=== PATIENT | female | born 1985 | race Two or more races ===

== ENCOUNTER 2020-11-30 11:11 | Inpatient (IN) | payer MEDICAID, OTHER ==
[~2020-11-30] VITALS: Ht 167.6 cm; Wt 84.8 kg
[2020-11-30] MEDS ORDERED: SODIUM CHLORIDE 0.9% 500 ML IVB ONE (11:15)
[2020-11-30 12:14] LABS: Hematocrit 28.2 % (36.0-46.0); Hemoglobin 8.8 g/dL (12.2-16.2); Mean Corpuscular Hemoglobin 32.5 pg (28.0-32.0); Mean Corpuscular Hgb Conc. 31.1 g/dL (32.0-36.0); Mean Corpuscular Volume 104.5 fL (80.0-100.0); Platelet Count (auto) 167 10^3/uL (140-450); White Blood Cell 20.9 10^3/uL (4.4-10.8)
[2020-11-30 12:16] LABS: Red Cell Distribution Width 27.1 % (11.8-14.3)
[2020-11-30 12:17] LABS: Basophils % (manual) 0 (0.0-2.0); Blast Cells 0; Eosinophils % (manual) 0 (0-7); Metamyelocytes % 0; Myelocytes % 0; Promyelocytes % 0; Reactive Lymphocytes 0
[2020-11-30 12:27] LABS: Lactic Acid w/Reflex 5.2 mmol/L (0.4-2.0)
[2020-11-30 12:36] LABS: INR 2.39 (0.9-1.15)
[2020-11-30 12:40] LABS: Albumin 1.4 g/dL (3.4-5.0); Anion Gap 20 (5-15); Blood Urea Nitrogen 49 mg/dL (7-18); Calcium 6.9 mg/dL (8.5-10.1); Chloride 102 mmol/L (98-107); Glucose 51 mg/dL (74-106); Sodium 131 mmol/L (136-145)
[2020-11-30 12:45] LABS: Partial Thromboplastin Time 74.2 sec (23.0-31.2)
[2020-11-30 12:51] LABS: Alanine Aminotransferase 64 U/L (13-56); Alkaline Phosphatase 379 U/L (45-117); Aspartate Aminotransferase 244 U/L (15-37); BUN/Creatinine Ratio 7.4; Bilirubin, Total 8.5 mg/dL (0.2-1.0); GFR African American 9 mL/min; GFR Non-African American 8 mL/min; Total Protein 6.3 g/dL (6.4-8.2)
[2020-11-30 12:56] LABS: Potassium 5.8 mmol/L (3.5-5.1)
[2020-11-30 12:57] LABS: Carbon Dioxide 9 mmol/L (21-32)
[2020-11-30] MEDS ORDERED: NOREPINEPHRINE 8 MG/250ML KIT 250 ML IV ONE (13:02)
[2020-11-30 13:15] LABS: Band Neutrophils % (manual) 7; Lymphocytes % (manual) 2 (10.0-50.0); Monocytes % (manual) 9 (0-12)
[2020-11-30] MEDS ORDERED: InsuLIN REG 1unit/0.01ml Soln (100units/ml) IV ONE (13:15)
[2020-11-30] MEDS ORDERED: LACTULOSE 20Gm/30ML SOLN PO ONE (13:15)
[2020-11-30] MEDS ORDERED: SODIUM BICARBONATE 8.4% INJ 50ML SYRINGE IV ONE (13:15)
[2020-11-30] MEDS ORDERED: ALBUTEROL SULF 2.5 MG/0.5ML(0.5%) NEB SOLN NEB ONE (13:15)
[2020-11-30] MEDS ORDERED: NOREPINEPHRINE 8 MG/250ML KIT 250 ML IV SCH (13:15)
[2020-11-30] MEDS ORDERED: DEXTROSE (50%) 50ML SYRG IV ONE (13:15)
[2020-11-30] MEDS ORDERED: FUROSEMIDE 20 MG/2 ML VIAL IV ONE (13:15)
[2020-11-30] MEDS ORDERED: SODIUM ZIRCONIUM CYCL 10 GM PAK PO ONE (13:15)
[2020-11-30] MEDS ORDERED: PIPERACILLIN-TAZOB 3.375GM 100 ML IV ONE (13:15)
[2020-11-30] MEDS ORDERED: CALCIUM GLUC 4.65meq/50ml D5AE 50 ML IV ONE (13:15)
[2020-11-30 16:45] LABS: Urine Amorphous Crystal FEW /hpf (None Seen); Urine Bacteria FEW /hpf (None Seen); Urine Blood TRACE /uL (Negative); Urine Hyaline Cast MANY /lpf (0 - 2); Urine Mucus FEW (None Seen); Urine WBC 23 /hpf (0 - 5); Urine WBC Clumps PRESENT /hpf (None Seen)
[2020-11-30 17:02] LABS: Alcohol, Urine < 3.0 mg/dL (0-10); Amphetamine Screen, Urine NEGATIVE (NEGATIVE); Barbiturate Scree,Urine NEGATIVE (NEGATIVE); Benzodiazephine Screen, Urine NEGATIVE (NEGATIVE); Cannabinoid Screen, Urine NEGATIVE (NEGATIVE); Cocaine Screen, Urine NEGATIVE (NEGATIVE); Opiate Scree,Urine POSITIVE (NEGATIVE); Phencyclidine Screen, Urine NEGATIVE (NEGATIVE)
[2020-11-30] MEDS ORDERED: ACETAMINOPHEN 325 MG TAB PO PRN (17:30)
[2020-11-30] MEDS ORDERED: NITROGLYCERIN 0.4 MG SL TAB SL PRN (17:30)
[2020-11-30] MEDS ORDERED: PHYTONADIONE (VIT K)10 MG/ML 1ML VIAL SUBCUT ONE (17:30)
[2020-11-30] MEDS ORDERED: MORPHINE SULF INJ 2 MG/ML SYRINGE 1ML IV PRN (17:30)
[2020-11-30] MEDS: NOREPINEPHRINE 8 MG/250ML KIT 250 ML IV SCH (17:30)
[2020-11-30] MEDS ORDERED: SODIUM CHLORIDE 0.9% 1,000 ML IV ONE (17:30)
[2020-11-30] MEDS: LACTULOSE 20Gm/30ML SOLN PO SCH ×2 (18:04→21:35)
[2020-11-30] MEDS: SODIUM CHLORIDE 0.9% 1,000 ML IV SCH ×2 (18:04→21:36)
[2020-11-30 20:01] LABS: Hemoglobin 8.9 g/dL (12.2-16.2); White Blood Cell 23.7 10^3/uL (4.4-10.8)
[2020-11-30 20:03] LABS: Hematocrit 27.9 % (36.0-46.0); Mean Corpuscular Hemoglobin 32.8 pg (28.0-32.0); Mean Corpuscular Hgb Conc. 31.8 g/dL (32.0-36.0); Mean Corpuscular Volume 102.9 fL (80.0-100.0); Platelet Count (auto) 197 10^3/uL (140-450); Red Blood Cells 2.72 10^6/uL (4.0-5.20)
[2020-11-30 20:11] LABS: Red Cell Distribution Width 26.7 % (11.8-14.3)
[2020-11-30 20:12] LABS: Basophils % (manual) 0 (0.0-2.0); Blast Cells 0; Metamyelocytes % 0; Myelocytes % 0; Promyelocytes % 0; Reactive Lymphocytes 0
[2020-11-30 20:21] LABS: Albumin 1.4 g/dL (3.4-5.0); Calcium 6.9 mg/dL (8.5-10.1); Potassium 5.1 mmol/L (3.5-5.1)
[2020-11-30 20:25] LABS: BUN/Creatinine Ratio 7.5; Bilirubin, Total 8.6 mg/dL (0.2-1.0); Total Protein 6.1 g/dL (6.4-8.2)
[2020-11-30 20:52] LABS: Lactic Acid w/Reflex 6.2 mmol/L (0.4-2.0)
[2020-11-30 21:33] LABS: Band Neutrophils % (manual) 20; Eosinophils % (manual) 1 (0-7); Lymphocytes % (manual) 4 (10.0-50.0); Monocytes % (manual) 5 (0-12)
[2020-11-30] MEDS: rifAXIMin 550 MG TAB PO SCH (21:36)
[2020-11-30] MEDS ORDERED: VANCOMYCIN PER PHARMACY 0 MG IV SCH (22:45)
[2020-11-30] MEDS ORDERED: VANCOMYCIN 1GM/250ML 250 ML IV ONE (22:45)
[2020-12-01] VITALS (37 sets, daily range): BP systolic 17–130; BP diastolic 36–63
[2020-12-01] MEDS: VASOPRESSIN 50 UNITS in D5W 5% 247.5 ML IV SCH (00:15)
[2020-12-01] MEDS: LACTULOSE 20Gm/30ML SOLN PO SCH ×6 (02:00→22:00)
[2020-12-01 05:45] LABS: Basophils # (auto) 0.1 10 ^3/uL (0-0.2); Basophils % (auto) 0.3 % (0.0-2.0); Eosinophils # (auto) 0.2 10 ^3/uL (0-0.8); Eosinophils % (auto) 0.8 % (0.0-7.0); Hematocrit 26.3 % (36.0-46.0); Nucleated Red Blood Cells % 0.2 %
[2020-12-01 05:48] LABS: Hemoglobin 8.5 g/dL (12.2-16.2); Lymphocytes % (auto) 16.9 % (10.0-50.0); Mean Corpuscular Hemoglobin 33.3 pg (28.0-32.0); Mean Corpuscular Hgb Conc. 32.2 g/dL (32.0-36.0); Mean Corpuscular Volume 103.6 fL (80.0-100.0); Monocytes # (auto) 1.7 10 ^3/uL (0-1.3); Monocytes % (auto) 7.2 % (0.0-12.0); Neutrophils # (auto) 17.7 10 ^3/uL (1.6-8.6); Neutrophils % (auto) 74.8 % (37.0-80.0); Platelet Count (auto) 177 10^3/uL (140-450); Red Blood Cells 2.54 10^6/uL (4.0-5.20); White Blood Cell 23.6 10^3/uL (4.4-10.8)
[2020-12-01 05:50] LABS: Red Cell Distribution Width 26.8 % (11.8-14.3)
[2020-12-01 05:56] LABS: Albumin 1.3 g/dL (3.4-5.0); Calcium 6.7 mg/dL (8.5-10.1); Magnesium 2.8 mg/dL (1.6-2.6); Potassium 5.2 mmol/L (3.5-5.1)
[2020-12-01 05:59] LABS: Lactic Acid w/Reflex 5.1 mmol/L (0.4-2.0)
[2020-12-01 06:00] LABS: BUN/Creatinine Ratio 7.4; Bilirubin, Total 8.3 mg/dL (0.2-1.0); Total Protein 5.9 g/dL (6.4-8.2)
[2020-12-01] MEDS: PIPERACILLIN-TAZOB 2.25GM 50 ML IV SCH ×3 (06:00→22:00)
[2020-12-01 06:02] LABS: INR 2.45 (0.9-1.15)
[2020-12-01 06:10] LABS: Partial Thromboplastin Time 81.5 sec (23.0-31.2)
[2020-12-01] MEDS: NOREPINEPHRINE 8 MG/250ML KIT 250 ML IV SCH ×2 (07:45→13:52)
[2020-12-01 09:10] LABS: Lactic Acid w/Reflex 4.8 mmol/L (0.4-2.0)
[2020-12-01] MEDS: ALBUMIN 25% 100 ML IV SCH ×2 (11:10→17:51)
[2020-12-01] MEDS: rifAXIMin 550 MG TAB PO SCH ×2 (11:24→22:00)
[2020-12-01] MEDS ORDERED: ROCURONIUM 10MG/ML 10ML VIAL IV ONE ×2 (12:06→12:45)
[2020-12-01] MEDS ORDERED: PROPOFOL 100 ML IV ONE (12:06)
[2020-12-01] MEDS ORDERED: ETOMIDATE (2MG/ML) 20ML VIAL IV ONE ×2 (12:06→12:45)
[2020-12-01] MEDS ORDERED: MIDAZOLAM DRIP 50 mg/50mL 50 ML IV ONE (12:06)
[2020-12-01] MEDS: MIDAZOLAM DRIP 50 mg/50mL 50 ML IV SCH ×3 (12:26→22:56)
[2020-12-01] MEDS: PROPOFOL 100 ML IV SCH ×2 (12:26→22:54)
[2020-12-01] MEDS ORDERED: SODIUM CHLORIDE 0.9% 1,000 ML IV ONE (12:45)
[2020-12-01] MEDS ORDERED: phytonadione 10 MG in SODIUM CHL 0.9% 50 ML IV ONE (13:00)
[2020-12-01] MEDS: SODIUM CHLORIDE 0.9% 1,000 ML IV SCH (13:29)
[2020-12-01] MEDS: OCTREOTIDE ACETATE 100 MCG/ML VL SUBCUT SCH ×2 (14:41→22:00)
[2020-12-01] MEDS: SODIUM BICARBONATE 50ML VIAL 100 ML in D5W 5% 1,000 ML IV SCH (17:50)
[2020-12-01] MEDS: PHENYLEPHRINE IV 250 ML IV SCH (23:00)
[2020-12-02] VITALS (102 sets, daily range): BP systolic 82–144; BP diastolic 31–71
[2020-12-02] MEDS ORDERED: VASOPRESSIN 20 UNIT/ML ONE (00:05)
[2020-12-02] MEDS: VASOPRESSIN 50 UNITS in D5W 5% 247.5 ML IV SCH ×2 (00:15→23:00)
[2020-12-02] MEDS: LACTULOSE 20Gm/30ML SOLN PO SCH ×6 (01:45→22:13)
[2020-12-02] MEDS: ALBUMIN 25% 100 ML IV SCH (01:45)
[2020-12-02] MEDS: SODIUM BICARBONATE 50ML VIAL 100 ML in D5W 5% 1,000 ML IV SCH (04:00)
[2020-12-02 04:01] LABS: Hemoglobin 7.1 g/dL (12.2-16.2); Platelet Count (auto) 151 10^3/uL (140-450); White Blood Cell 22.5 10^3/uL (4.4-10.8)
[2020-12-02 04:03] LABS: Hematocrit 21.8 % (36.0-46.0); Mean Corpuscular Hemoglobin 33.6 pg (28.0-32.0); Mean Corpuscular Hgb Conc. 32.5 g/dL (32.0-36.0); Mean Corpuscular Volume 103.3 fL (80.0-100.0); Red Blood Cells 2.11 10^6/uL (4.0-5.20)
[2020-12-02 04:04] LABS: Red Cell Distribution Width 26.9 % (11.8-14.3)
[2020-12-02 04:07] LABS: Basophils % (manual) 0 (0.0-2.0); Blast Cells 0; Eosinophils % (manual) 0 (0-7); Metamyelocytes % 0; Myelocytes % 0; Promyelocytes % 0; Reactive Lymphocytes 0
[2020-12-02 04:15] LABS: Albumin 2.5 g/dL (3.4-5.0); Calcium 6.5 mg/dL (8.5-10.1); Potassium 4.3 mmol/L (3.5-5.1)
[2020-12-02 04:17] LABS: % Iron Saturation 128.3 % (15-50)
[2020-12-02 04:19] LABS: BUN/Creatinine Ratio 7.3; Total Protein 6.6 g/dL (6.4-8.2)
[2020-12-02 04:32] LABS: INR 2.19 (0.9-1.15)
[2020-12-02 04:35] LABS: Partial Thromboplastin Time 78.6 sec (23.0-31.2)
[2020-12-02 04:50] LABS: Band Neutrophils % (manual) 1; Lymphocytes % (manual) 17 (10.0-50.0); Monocytes % (manual) 5 (0-12)
[2020-12-02] MEDS: MIDAZOLAM DRIP 50 mg/50mL 50 ML IV SCH ×4 (05:14→23:41)
[2020-12-02] MEDS: NOREPINEPHRINE 8 MG/250ML KIT 250 ML IV SCH ×4 (05:14→23:00)
[2020-12-02] MEDS: PIPERACILLIN-TAZOB 2.25GM 50 ML IV SCH ×3 (05:48→22:14)
[2020-12-02] MEDS: OCTREOTIDE ACETATE 100 MCG/ML VL SUBCUT SCH ×3 (05:49→22:13)
[2020-12-02] MEDS: PHENYLEPHRINE IV 250 ML IV SCH ×2 (07:20→15:40)
[2020-12-02] MEDS: rifAXIMin 550 MG TAB PO SCH ×2 (09:54→22:14)
[2020-12-02] MEDS: PROPOFOL 100 ML IV SCH ×3 (09:55→23:39)
[2020-12-02] MEDS: DOPamine 1600MCG/ML D5W 250 ML IV SCH (10:09)
[2020-12-02] MEDS: SODIUM BICARBONATE 50ML VIAL 150 ML in D5W 5% 1,000 ML IV SCH ×2 (12:45→18:07)
[2020-12-02] MEDS: PANTOPRAZOLE 40 MG/10 ML VIAL INJ IV SCH (12:45)
[2020-12-02] MEDS: fentaNYL Drip 2500mCg/250mlNS 250 ML IV SCH ×2 (12:46→23:41)
[2020-12-02] MEDS: HYDROCORTISONE SOD SUCC 100 MG/2ML INJ VIAL IV SCH (22:14)
[2020-12-03] VITALS (96 sets, daily range): BP systolic 88–140; BP diastolic 35–69
[2020-12-03] MEDS: LACTULOSE 20Gm/30ML SOLN PO SCH ×6 (02:17→22:26)
[2020-12-03] MEDS: MIDAZOLAM DRIP 50 mg/50mL 50 ML IV SCH ×4 (04:00→19:00)
[2020-12-03] MEDS: PROPOFOL 100 ML IV SCH ×5 (04:00→19:10)
[2020-12-03 05:25] LABS: Hematocrit 21.8 % (36.0-46.0); Hemoglobin 7.5 g/dL (12.2-16.2)
[2020-12-03] MEDS: HYDROCORTISONE SOD SUCC 100 MG/2ML INJ VIAL IV SCH ×3 (06:00→22:25)
[2020-12-03] MEDS: PIPERACILLIN-TAZOB 2.25GM 50 ML IV SCH ×3 (06:00→22:25)
[2020-12-03] MEDS: OCTREOTIDE ACETATE 100 MCG/ML VL SUBCUT SCH ×3 (06:00→22:26)
[2020-12-03] MEDS: SODIUM BICARBONATE 50ML VIAL 150 ML in D5W 5% 1,000 ML IV SCH ×3 (06:00)
[2020-12-03] MEDS: PHENYLEPHRINE IV 250 ML IV SCH ×3 (08:04→14:36)
[2020-12-03] MEDS: VASOPRESSIN 50 UNITS in D5W 5% 247.5 ML IV SCH (08:05)
[2020-12-03] MEDS: PANTOPRAZOLE 40 MG/10 ML VIAL INJ IV SCH (08:40)
[2020-12-03] MEDS: DOPamine 1600MCG/ML D5W 250 ML IV SCH ×2 (08:41→14:49)
[2020-12-03] MEDS: rifAXIMin 550 MG TAB PO SCH ×2 (08:41→22:26)
[2020-12-03 09:56] LABS: BUN/Creatinine Ratio 7.1; Potassium 4.2 mmol/L (3.5-5.1)
[2020-12-03] MEDS ORDERED: CALCIUM GLUC 4.65meq/50ml D5AE 50 ML IV ONE (13:15)
[2020-12-03] MEDS: fentaNYL Drip 2500mCg/250mlNS 250 ML IV SCH (14:52)
[2020-12-03] MEDS: SODIUM BICARBONATE 50ML VIAL 150 ML in SOD CHL 0.45% 1,000 ML IV SCH ×2 (17:37→23:57)
[2020-12-04] VITALS (17 sets, daily range): BP systolic 50–120; BP diastolic 50–77
[2020-12-04] MEDS: MIDAZOLAM DRIP 50 mg/50mL 50 ML IV SCH (01:00)
[2020-12-04] MEDS: PHENYLEPHRINE IV 250 ML IV SCH (01:00)
[2020-12-04] MEDS: PROPOFOL 100 ML IV SCH (02:00)
[2020-12-04] MEDS: LACTULOSE 20Gm/30ML SOLN PO SCH (02:07)
[2020-12-04] MEDS: fentaNYL Drip 2500mCg/250mlNS 250 ML IV SCH (03:56)
[2020-12-04 13:51] LABS: Hepatitis A Ab IgM Negative; Hepatitis B Core IgM Negative; Hepatitis B Surface Antigen Negative (Negative); Hepatitis C Antibody Negative (Negative)
== END 2020-12-04 04:05 | disposition short-term general hospital (02) | DRG 720 ==
LOC: ER 11:11 → EDBD 11:11 → TELE 17:36 → ICU WEST 12-01 17:04
PROVIDERS: ADMIT Internal Medicine; ATTEND Internal Medicine
PROC: 0DH63UZ Insertion of Feeding Device into Stomach, Percutaneous Approach (ICD-10-PCS; 2020-11-30)
PROC: 0BH17EZ Insertion of Endotracheal Airway into Trachea, Via Natural or Artificial Opening (ICD-10-PCS; principal; 2020-12-01)
PROC: 5A1945Z Respiratory Ventilation, 24-96 Consecutive Hours (ICD-10-PCS; 2020-12-01)
PROC: 30233K1 Transfusion of Nonautologous Frozen Plasma into Peripheral Vein, Percutaneous Approach (ICD-10-PCS; 2020-12-01)
PROC: 02H633Z Insertion of Infusion Device into Right Atrium, Percutaneous Approach (ICD-10-PCS; 2020-12-01)
PROC: B548ZZA Ultrasonography of Superior Vena Cava, Guidance (ICD-10-PCS; 2020-12-01)
DX: A41.9 Sepsis, unspecified organism (principal); N17.0 Acute kidney failure with tubular necrosis; J96.01 Acute respiratory failure with hypoxia; K72.00 Acute and subacute hepatic failure without coma; I81 Portal vein thrombosis; R65.21 Severe sepsis with septic shock; R18.8 Other ascites; E87.5 Hyperkalemia; D68.9 Coagulation defect, unspecified; E88.09 Other disorders of plasma-protein metabolism, not elsewhere classified; Z20.822 Contact with and (suspected) exposure to COVID-19; K74.60 Unspecified cirrhosis of liver; C25.9 Malignant neoplasm of pancreas, unspecified; K72.90 Hepatic failure, unspecified without coma; N39.0 Urinary tract infection, site not specified; D64.9 Anemia, unspecified; F17.200 Nicotine dependence, unspecified, uncomplicated; N14.1 Nephropathy induced by other drugs, medicaments and biological substances; T36.8X5A Adverse effect of other systemic antibiotics, initial encounter; Z79.899 Other long term (current) drug therapy; Z85.07 Personal history of malignant neoplasm of pancreas; Y92.89 Other specified places as the place of occurrence of the external cause
CPT/HCPCS: 36415; 36600; 70450; 71045; 74176; 76700; 80048; 80053; 80074; 80202; 80307; 80329; 81001; 82105; 82140; 82248; 82378; 82565; 82570; 82607; 82728; 82805; 82962; 83540; 83550; 83605; 83615; 83735; 84132; 84156; 84300; 84484; 84702; 85007; 85014; 85018; 85025; 85027; 85045; 85379; 85610; 85730; 86141; 86301; 86304; 86850; 86900; 86901; 87040; 87070; 87077; 87081; 87205; 87426; 93005; 93970; 94002; 94003; 94640; 96365; 96375; 99291; C9113; G0378; J0610; J2250; J2543; J2704; J3430; J7060; P9047